=== PATIENT | male | born 1990 | race Caucasian/White ===

== ENCOUNTER 2017-03-19 20:43 | Emergency (ER) | payer BC | END 2017-03-19 23:33 | disposition home or self-care (01) | LOC: D.ER 20:43 | DX: S93.402A Sprain of unspecified ligament of left ankle, initial encounter (principal); V89.9XXA Person injured in unspecified vehicle accident, initial encounter; Y93.89 Activity, other specified; Y92.017 Garden or yard in single-family (private) house as the place of occurrence of the external cause ==